=== PATIENT | female | born 1990 | race Caucasian/White ===

== ENCOUNTER 2018-01-20 17:13 | Inpatient (IN) | payer OTHER ==
[2018-01-20 17:13] VITALS: BMI 22.1
[2018-01-20 18:42] LABS: HCG,QUALITATIVE URINE POSITIVE (NEGATIVE); SQUAMOUS EPITHIAL 4 /hpf (0-5); URINE BACTERIA FEW (<OCC); URINE BILIRUBIN NEGATIVE (NEGATIVE); URINE BLOOD 1+ (NEGATIVE); URINE CLARITY Hazy (Clear); URINE COLOR Straw (YELLOW); URINE GLUCOSE (UA) NORMAL (Normal); URINE LEUKOCYTE ESTERASE 2+ Leu/uL (Negative); URINE PROTEIN NEGATIVE (NEGATIVE); URINE UROBILINOGEN NORMAL mg/dL (0.2-1.0)
[2018-01-20 19:56] LABS: BASO # 0.1 K/uL (0.0-0.2); BASO % 0.3 % (0.0-2.0); EOS # 0.1 K/uL (0.0-0.7); EOS % 0.3 % (0.0-4.0); LYMPH # 1.1 K/uL (1.0-4.3); LYMPH % 6.1 % (20.0-40.0); MEAN CELL VOLUME 84.1 fL (81.0-99.0); MEAN CORPUSCULAR HEMOGLOBIN 28.9 pg (27.0-31.0); MEAN CORPUSCULAR HGB CONC 34.4 g/dL (33.0-37.0); MEAN PLATELET VOLUME 9.3 fL (7.2-11.7); MONO # 0.8 K/uL (0.0-0.8); MONO % 4.4 % (0.0-10.0); NEUT % 88.9 % (50.0-75.0); NRBC % 0.1 % (0.0-2.0); PLATELET COUNT 246 K/uL (130-400); RBC 4.86 Mil/uL (3.80-5.20); RED CELL DISTRIBUTION WIDTH 13.7 % (11.5-14.5)
[2018-01-20] MEDS ORDERED: Sodium Chloride 0.9% 1,000 ML IV ONE ×2 (20:00→20:38)
[2018-01-20] MEDS ORDERED: Sodium Chloride 0.9% 1,000 ML ONE (20:00)
[2018-01-20 20:14] LABS: CALCIUM 9.4 mg/dl (8.6-10.4); GFR AFRICAN-AMERICAN > 60; GFR NON-AFRICAN AMERICAN > 60
[2018-01-20 20:15] LABS: ALB/GLOB RATIO 1.1 (1.0-2.1); ALBUMIN 4.3 g/dL (3.5-5.0); ALT/SGPT 19 U/L (9-52); AST/SGOT 38 U/L (14-36); BLOOD UREA NITROGEN 6 mg/dL (7-17)
[2018-01-20] MEDS ORDERED: WATER FOR INJECTION IVPB STA (20:32)
[2018-01-20] MEDS ORDERED: CEFTRIAXONE IVPB STA (20:32)
[2018-01-20 20:34] LABS: BANDS 8 % (0-2); EOSINOPHIL 1 % (0-4); LYMPHOCYTE 8 % (20-40); MONOCYTE 4 % (0-10); NEUTROPHIL 79 % (50-75); PLATELET ESTIMATE NORMAL (NORMAL); TOTAL CELLS COUNTED 100
[2018-01-20] MEDS ORDERED: cefTRIAXone IV 1 gm in Dextros 50 ML IVPB ONE ×2 (20:45→21:00)
--- NOTE | 2018-01-20 21:00 | C.PDOC ---
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 Complaint (Nursing): Abdominal Pain Past Medical History Vital Signs: Last Vital Signs Temp 97.4 F L 01/21/18 07:38 Pulse 82 01/21/18 07:38 Resp 20 01/21/18 07:38 BP 89/51 L 01/21/18 07:38 Pulse Ox 99 01/21/18 07:38 - Medical History PMH: Denies: Chronic Kidney Disease Surgical History: Appendectomy Family History: States: No Known Family Hx - Social History Hx Alcohol Use: No Hx Substance Use: No - Immunization History Hx Influenza Vaccination: No Hx Pneumococcal Vaccination: No ED Course And Treatment - Laboratory Results Result Diagrams: 01/21/18 07:31 01/20/18 19:48 O2 Sat by Pulse Oximetry: 98 Medical Decision Making Medical Decision Making: Patient being admitted to [facility] with pyelonephritis in first trimester of . Scribe Attestation: Documented by Hal Laureano acting as a scribe Ruddy Pinedo MD. MD Castilloibdivya Attestation: All medical record entries made by the Scribe were at my direction and personally dictated by me. I have reviewed the chart and agree that the record accurately reflects my personal performance of the history, physical exam, medical decision making, and the department course for this patient. I have also personally directed, reviewed, and agree with the discharge instructions and disposition. Disposition - Disposition Disposition: HOSPITALIZED Disposition Time: 08:55 Condition: FAIR - Clinical Impression Clinical Impression: Pyelonephritis
--- NOTE | 2018-01-20 21:58 | US ---
EXAM: US First Trimester, Transabdominal US , Transvaginal CLINICAL HISTORY: 27 years old, female; Pain; complicated by abdominal or pelvic pain; Generalized abdominal pain; First trimester; Gestational age or lmp: [id number]; ; Prior surgery; Surgery date: 6+ months; Surgery type: scar; Additional info: with abd pain TECHNIQUE: Real-time transabdominal and transvaginal obstetrical ultrasound of the maternal pelvis and a first trimester with image documentation. Transvaginal imaging was used for better evaluation of the fetus and adnexa. COMPARISON: No relevant prior studies available. FINDINGS: Gestation: Single live intrauterine gestation. heart rate of 140 beats per minute. Remy-rump length of 1.1 cm, correlating with gestational age of 7 weeks 1 day. Uterus/cervix: No subchorionic hemorrhage. Closed cervix. Ovaries: RIGHT ovary: Probable 1.6 x 1.7 x 1.8 cm corpus luteal cyst. LEFT ovary: Normal. No adnexal masses. Free fluid: Trace free fluid within pelvis. IMPRESSION: 1. Single live intrauterine gestation. 2. Incidental/non-acute findings are described above.
[2018-01-20] MEDS ORDERED: Morphine 4 MG/ML VIAL ONE (22:56)
[2018-01-20] MEDS: Lactated Ringer's 1,000 ML IV SCH (23:51)
[2018-01-21 00:05] VITALS: RESP 20
--- NOTE | 2018-01-21 00:10 | CP.PCM.HP ---
History of Present Illness - History of Present Illness History of Present Illness: PT is 27 at 8 weeks by LMP presents today to the ER with worsening pelvic pain for the last 2 days. She was found to be febrile with UA+ for UTI, and WBC of 18. Pt states that the pain is 10/10, does not radiate, The pain is dull and nothing improves or worsens the pain. THis is her first episode of the pain. She has not taken any medications prior to today. She has not gotten care yet. Present on Admission - Present on Admission Any Indicators Present on Admission: No History of DVT/PE: No History of Uncontrolled Diabetes: No Urinary Catheter: No Decubitus Ulcer Present: No Review of Systems - Review of Systems All systems: reviewed and no additional remarkable complaints except - Genitourinary Genitourinary: Flank Pain, Pyuria, Nocturia, Urinary Urgency - Reproductive: Female Reproductive:Female: As Per HPI, Amenorrhea Past Patient History - Tetanus Immunizations Tetanus Immunization: Unknown - Past Medical History & Family History Past Medical History?: No Past Family History: Reviewed and not pertinent - Past Social History Smoking Status: Never Smoked Chewing Tobacco Use: No Cigar Use: No Alcohol: None - CARDIAC Hx Cardiac Disorders: No - PULMONARY Hx Respiratory Disorders: No - NEUROLOGICAL Hx Neurological Disorder: No - HEENT Hx HEENT Problems: No - RENAL Hx Chronic Kidney Disease: No - ENDOCRINE/METABOLIC Hx Endocrine Disorders: No - HEMATOLOGICAL/ONCOLOGICAL Hx Blood Disorders: No - INTEGUMENTARY Hx Dermatological Problems: No - MUSCULOSKELETAL/RHEUMATOLOGICAL Hx Musculoskeletal Disorders: No - GASTROINTESTINAL Hx Gastrointestinal Disorders: No - GENITOURINARY/GYNECOLOGICAL Other/Comment: "Kidney Stones" - PSYCHIATRIC Hx Substance Use: No - SURGICAL HISTORY Hx Appendectomy: Yes - ANESTHESIA Hx Anesthesia: Yes (Epidural) Hx Anesthesia Reactions: Yes (pain) Meds Allergies/Adverse Reactions: Allergies Allergy/AdvReac Type Severity Reaction Status Date / Time No Known Allergies Allergy Verified 01/20/18 17:57 Physical Exam - Head Exam Head Exam: NORMAL INSPECTION - Eye Exam Eye Exam: Normal appearance - ENT Exam ENT Exam: Mucous Membranes Moist, Normal Exam - Neck Exam Neck exam: Positive for: Normal Inspection - Exam External exam: NORMAL EXTERNAL EXAM Results - Vital Signs Recent Vital Signs: Last Vital Signs Temp 97.4 F L 01/21/18 00:04 Pulse 89 01/21/18 00:04 Resp 20 05/08/18 00:04 BP 107/82 01/21/18 00:04 Pulse Ox 99 01/21/18 00:04 - Labs Result Diagrams: 01/20/18 19:48 01/20/18 19:48 Labs: Laboratory Results - last 24 hr 01/20/18 01/20/18 01/20/18 18:23 18:38 19:48 WBC 18.0 H RBC 4.86 Hgb 14.0 Hct 40.8 MCV 84.1 MCH 28.9 MCHC 34.4 RDW 13.7 Plt Count 246 MPV 9.3 Neut % (Auto) 88.9 H Lymph % (Auto) 6.1 L [place] % (Auto) 4.4 Eos % (Auto) 0.3 Baso % (Auto) 0.3 Neut # (Auto) 16.0 H Lymph # (Auto) 1.1 [place] # (Auto) 0.8 Eos # (Auto) 0.1 Baso # (Auto) 0.1 Neutrophils % (Manual) 79 H Band Neutrophils % 8 H Lymphocytes % (Manual) 8 L Monocytes % (Manual) 4 Eosinophils % (Manual) 1 Platelet Estimate Normal RBC Morphology Normal Sodium Potassium Chloride Carbon Dioxide Anion Gap BUN Creatinine Est GFR ( Amer) Est GFR (Non-Af Amer) Random Glucose Lactic Acid Calcium Total Bilirubin AST ALT Alkaline Phosphatase Total Protein Albumin Globulin Albumin/Globulin Ratio Beta HCG, Quant Urine Color Cancelled Straw Urine Appearance Cancelled Urine Clarity Hazy Urine pH Cancelled 7.0 Ur Specific [place] Cancelled 1.009 Urine Protein Cancelled Negative Urine Glucose (UA) Cancelled Normal Urine Ketones Cancelled Negative Urine Blood Cancelled 1+ H Urine Nitrate Cancelled Negative Urine Bilirubin Cancelled Negative Urine Urobilinogen Cancelled Normal Ur Leukocyte Esterase Cancelled 2+ H Urine WBC (Auto) 83 H Urine RBC (Auto) 8 H Ur Squamous Epith Cells 4 Urine Bacteria Few H Urine HCG, Qual Cancelled Positive 01/20/18 01/20/18 01/20/18 19:48 20:55 20:56 WBC RBC Hgb Hct MCV MCH MCHC RDW Plt Count MPV Neut % (Auto) Lymph % (Auto) [place] % (Auto) Eos % (Auto) Baso % (Auto) Neut # (Auto) Lymph # (Auto) [place] # (Auto) Eos # (Auto) Baso # (Auto) Neutrophils % (Manual) Band Neutrophils % Lymphocytes % (Manual) Monocytes % (Manual) Eosinophils % (Manual) Platelet Estimate RBC Morphology Sodium 137 Potassium 3.9 Chloride 101 Carbon Dioxide 23 Anion Gap 17 BUN 6 L Creatinine 0.5 L Est GFR ( Amer) > 60 Est GFR (Non-Af Amer) > 60 Random Glucose 73 Lactic Acid 0.8 Calcium 9.4 Total Bilirubin 1.3 AST 38 H ALT 19 Alkaline Phosphatase 136 H Total Protein 8.1 Albumin 4.3 Globulin 3.8 Albumin/Globulin Ratio 1.1 Beta HCG, Quant 41844.00 Urine Color Urine Appearance Urine Clarity Urine pH Ur Specific [place] Urine Protein Urine Glucose (UA) Urine Ketones Urine Blood Urine Nitrate Urine Bilirubin Urine Urobilinogen Ur Leukocyte Esterase Urine WBC (Auto) Urine RBC (Auto) Ur Squamous Epith Cells Urine Bacteria Urine HCG, Qual Assessment & Plan - Assessment and Plan (Free Text) Assessment: Acute pylenophritis 8 weeks gestation Plan: 1) Ceftriaxone IV. 2) Repeat CBC in the am. Currently 18 3) 8 week gestation : start PNV. refer for care Decision To Admit - Pt Status Changed To: Hospital Disposition Of: Inpatient - Admit Certification Admit to Inpatient:: After my assessment, the patient will require hospitalization for at least two midnights. This is because of the severity of symptoms shown, intensity of services needed, and/or the medical risk in this patient being treated as an outpatient. - InPatient: Physician Admission Certification:: Acute pyelonephritis - . 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
[2018-01-21] MEDS: Lactated Ringer's 1,000 ML IV SCH (07:45)
[2018-01-21 07:49] LABS: BASO # 0.1 K/uL (0.0-0.2); BASO % 0.7 % (0.0-2.0); EOS # 0.1 K/uL (0.0-0.7); EOS % 0.6 % (0.0-4.0); HEMOGLOBIN 12.2 g/dL (11.0-16.0); LYMPH # 2.1 K/uL (1.0-4.3); LYMPH % 19.1 % (20.0-40.0); MEAN CELL VOLUME 83.1 fL (81.0-99.0); MEAN CORPUSCULAR HEMOGLOBIN 29.6 pg (27.0-31.0); MEAN CORPUSCULAR HGB CONC 35.6 g/dL (33.0-37.0); MEAN PLATELET VOLUME 8.8 fL (7.2-11.7); MONO # 0.9 K/uL (0.0-0.8); MONO % 8.1 % (0.0-10.0); NEUT # 7.8 K/uL (1.8-7.0); NEUT % 71.5 % (50.0-75.0); RBC 4.11 Mil/uL (3.80-5.20); RED CELL DISTRIBUTION WIDTH 13.3 % (11.5-14.5); WHITE BLOOD COUNT 10.9 K/uL (4.8-10.8)
--- NOTE | 2018-01-21 09:57 | CP.PCM.PN ---
Subjective - Date & Time of Evaluation Date of Evaluation: 01/21/18 Time of Evaluation: 09:50 - Subjective Subjective: s: pt states pain is still present in RLQ but is decreased in intensity. she states pain radiates to right lower flank. she states she has had n/v and today is her 3rd day of it. she was unable to tolerate liquids this morning. Objective - Vital Signs/Intake and Output Vital Signs (last 24 hours): Temp Pulse Resp BP Pulse Ox 97.4 F L 82 20 89/51 L 98 01/21/18 07:38 01/21/18 07:38 01/21/18 07:38 01/21/18 07:38 01/21/18 08:55 Intake and Output: 01/21/18 01/21/18 06:59 18:59 Intake Total 1350 Balance 1350 - Medications Medications: Current Medications Acetaminophen (Tylenol 325mg Tab) 650 mg PO Q6 PRN; Protocol PRN Reason: Pain, Mild (1-3) Lactated Ringer's (Lactated Ringer's) 1,000 mls @ 125 mls/hr IV .Q8H MARKUS PRN Reason: Protocol Stop: 01/22/18 23:46 Last Admin: 01/20/18 23:51 Dose: 125 mls/hr Multivit/Folic Acid/Iron () 1 tab PO DAILY MARKUS - Labs Labs: 01/21/18 07:31 01/20/18 19:48
[2018-01-21] MEDS: Prenatal Multivit/Folic Acid/Iron Tab PO SCH (12:07)
[2018-01-21] MEDS: Lactobacillus Acidophilus 500 MU Cap PO SCH (17:48)
[2018-01-22] MEDS: Prenatal Multivit/Folic Acid/Iron Tab PO SCH (09:51)
[2018-01-22] MEDS: Lactobacillus Acidophilus 500 MU Cap PO SCH (09:53)
--- NOTE | 2018-01-22 13:55 | CP.PCM.DIS ---
Provider - Provider Date of Admission: 01/20/18 22:46 Attending physician: Angelina Lee Time Spent in preparation of Discharge (in minutes): 35 Hospital Course - Lab Results Lab Results: Micro Results 01/21/18 00:32 Urine,Catheterized Urine Culture - Final No Growth (<1,000 CFU/ML) Most Recent Lab Values WBC 10.9 K/uL (4.8-10.8) H 01/21/18 07:31 RBC 4.11 Mil/uL (3.80-5.20) 01/21/18 07:31 Hgb 12.2 g/dL (11.0-16.0) 01/21/18 07: Hct 34.2 % (34.0-47.0) 01/21/18 07: MCV 83.1 fL (81.0-99.0) 01/21/18 07: MCH 29.6 pg (27.0-31.0) 01/21/18 07: MCHC 35.6 g/dL (33.0-37.0) 01/21/18 07:31 RDW 13.3 % (11.5-14.5) 01/21/18 07:31 Plt Count 247 K/uL (130-400) 01/21/18 07:31 MPV 8.8 fL (7.2-11.7) 01/21/18 07:31 Neut % (Auto) 71.5 % (50.0-75.0) 01/21/18 07: Lymph % (Auto) 19.1 % (20.0-40.0) L 01/21/18 07:31 [place] % (Auto) 8.1 % (0.0-10.0) 01/21/18 07:31 Eos % (Auto) 0.6 % (0.0-4.0) 01/21/18 07:31 Baso % (Auto) 0.7 % (0.0-2.0) 01/21/18 07: Neut # (Auto) 7.8 K/uL (1.8-7.0) H 01/21/18 07: Lymph # (Auto) 2.1 K/uL (1.0-4.3) 01/21/18 07:31 [place] # (Auto) 0.9 K/uL (0.0-0.8) H 01/21/18 07:31 Eos # (Auto) 0.1 K/uL (0.0-0.7) 01/21/18 07:31 Baso # (Auto) 0.1 K/uL (0.0-0.2) 01/21/18 07:31 Neutrophils % (Manual) 79 % (50-75) H 01/20/18 19:48 Band Neutrophils % 8 % (0-2) H 01/20/18 19:48 Lymphocytes % (Manual) 8 % (20-40) L 01/20/18 19:48 Monocytes % (Manual) 4 % (0-10) 01/20/18 19:48 Eosinophils % (Manual) 1 % (0-4) 01/20/18 19:48 Platelet Estimate Normal (NORMAL) 01/20/18 19:48 RBC Morphology Normal 01/20/18 19:48 Sodium 137 mmol/L (132-148) 01/20/18 19:48 Potassium 3.9 mmol/L (3.6-5.2) 01/20/18 19:48 Chloride 101 mmol/L (98-107) 01/20/18 19:48 Carbon Dioxide 23 mmol/L (22-30) 01/20/18 19:48 Anion Gap 17 (10-20) 01/20/18 19:48 BUN 6 mg/dL (7-17) L 01/20/18 19:48 Creatinine 0.5 mg/dL (0.7-1.2) L 01/20/18 19:48 Est GFR ( Amer) > 60 01/20/18 19:48 Est GFR (Non-Af Amer) > 60 01/20/18 19:48 Random Glucose 73 mg/dL (65-105) 01/20/18 19:48 Lactic Acid 0.8 mmol/L (0.7-2.1) 01/20/18 20:55 Calcium 9.4 mg/dl (8.6-10.4) 01/20/18 19:48 Total Bilirubin 1.3 mg/dL (0.2-1.3) 01/20/18 19:48 AST 38 U/L (14-36) H 01/20/18 19:48 ALT 19 U/L (9-52) 01/20/18 19:48 Alkaline Phosphatase 136 U/L (38-126) H 01/20/18 19:48 Total Protein 8.1 g/dL (6.3-8.3) 01/20/18 19:48 Albumin 4.3 g/dL (3.5-5.0) 01/20/18 19:48 Globulin 3.8 gm/dL (2.2-3.9) 01/20/18 19:48 Albumin/Globulin Ratio 1.1 (1.0-2.1) 01/20/18 19:48 Beta HCG, Quant 44139.00 mIU/ML 01/20/18 20:56 Urine Color Straw (YELLOW) 01/20/18 18:38 Urine Appearance Cancelled 01/20/18 18:23 Urine Clarity Hazy (Clear) 01/20/18 18:38 Urine pH 7.0 (5.0-8.0) 01/20/18 18:38 Ur Specific [place] 1.009 (1.003-1.030) 01/20/18 18:38 Urine Protein Negative mg/dL (NEGATIVE) 01/20/18 18:38 Urine Glucose (UA) Normal mg/dL (Normal) 01/20/18 18:38 Urine Ketones Negative mg/dL (NEGATIVE) 01/20/18 18:38 Urine Blood 1+ (NEGATIVE) H 01/20/18 18:38 Urine Nitrate Negative (NEGATIVE) 01/20/18 18:38 Urine Bilirubin Negative (NEGATIVE) 01/20/18 18:38 Urine Urobilinogen Normal mg/dL (0.2-1.0) 01/20/18 18:38 Ur Leukocyte Esterase 2+ Reany/uL (Negative) H 01/20/18 18:38 Urine WBC (Auto) 83 /hpf (0-5) H 01/20/18 18:38 Urine RBC (Auto) 8 /hpf (0-3) H 01/20/18 18:38 Ur Squamous Epith Cells 4 /hpf (0-5) 01/20/18 18:38 Urine Bacteria Few (<OCC) H 01/20/18 18:38 Urine HCG, Qual Positive (NEGATIVE) 01/20/18 18:38 - Hospital Course Hospital Course: HPI ( As per admission): PT is 27 at 8 weeks by LMP presents today to the ER with worsening pelvic pain for the last 2 days. She was found to be febrile with UA+ for UTI, and WBC of 18. Pt states that the pain is 10/10, does not radiate, The pain is dull and nothing improves or worsens the pain. THis is her first episode of the pain. She has not taken any medications prior to today. She has not gotten care yet. Hospital course: Patient was admitted with the consideration of acute pyleonephritis. Patient was started on appropriate antibiotics and patient showed significant improvement. Upon discharge, patient was without symptoms and negative urine culture. Patient was discharge with appropriate instruction and medication. This is a brief summary of event. For a complete course, please refer to the medical records. Discharge Exam - Head Exam Head Exam: NORMAL INSPECTION - Eye Exam Eye Exam: EOMI, Normal appearance - ENT Exam ENT Exam: Mucous Membranes Moist - Respiratory Exam Respiratory Exam: Clear to PA & Lateral, UNREMARKABLE - Cardiovascular Exam Cardiovascular Exam: REGULAR RHYTHM, +S1, +S2 - GI/Abdominal Exam GI & Abdominal Exam: Normal Bowel Sounds, Soft - Extremities Exam Extremities exam: normal inspection - Back Exam Back exam: NORMAL INSPECTION - Psychiatric Exam Psychiatric exam: Normal Affect - Skin Skin Exam: Normal Color Discharge Plan - Discharge Medications Prescriptions: Nitrofurantoin Macrocrystals [Macrobid] 100 mg PO Q12H 7 Days #14 cap - Follow Up Plan Condition: FAIR Disposition: HOME/ ROUTINE Additional Instructions: Please discharge patient home Please take macrobid 100mg PO Q12H for 7 days. Please take 1 tablet at breakfast time and at dinner time. Please take with yogurt Please follow up with your Wire Drawing Machine Tender within 1 week of discharge and as regularly scheduled for your care Please return to the hospital if symptoms resumes such as fever, chills, back pain, contractions, vaginal bleeding or leakage of fluid Please take care
[2018-01-22 15:47] VITALS: BP 102/65; PULSE 70; TEMP 98.8; O2SAT 99
== END 2018-01-22 15:40 | disposition home or self-care (01) | DRG 886 ==
LOC: C.ER 17:13 → C.9E 22:46 → C.4M 23:03
PROVIDERS: ADMIT Obstetrics & Gynecology; ATTEND Obstetrics & Gynecology
DX: O23.01 Infections of kidney in pregnancy, first trimester (principal); O09.31 Supervision of pregnancy with insufficient antenatal care, first trimester; Z3A.08 8 weeks gestation of pregnancy; Z90.49 Acquired absence of other specified parts of digestive tract

== ENCOUNTER 2018-03-11 22:14 | Emergency (ER) | payer OTHER ==
[2018-03-11 22:14] VITALS: BMI 22.1
--- NOTE | 2018-03-11 22:32 | C.PDOC ---
History Of Present Illness Patient presents to the ER with a complaint of vaginal pain and whitish vaginal discharge. Patient is 15 weeks , , states she had intercourse 2 days ago and is now having discomfort. Denies fever or chills. Time Seen by Provider: 03/11/18 22:32 Chief Complaint (Nursing): Female Genitourinary History Per: Patient History/Exam Limitations: no limitations Onset/Duration Of Symptoms: Days Current Symptoms Are (Timing): Still Present Severity: Moderate Pain Scale Rating Of: 4 Quality Of Discomfort: Unable To Describe Associated Symptoms: Other (Vaginal pain, Vaginal discharge). denies: Fever, Chills Alleviating Factors: None Recent travel outside of the [place]: No Abnormal Vaginal Bleeding: No : 3 Para: 1 Past Medical History Reviewed: Historical Data, Nursing Documentation, Vital Signs Vital Signs: Last Vital Signs Temp 98 F 03/11/18 22:23 Pulse 78 03/11/18 22:23 Resp 20 03/11/18 22:23 BP 114/78 03/11/18 22:23 Pulse Ox 98 03/11/18 22:55 Surgical History: Appendectomy Family History: States: No Known Family Hx - Social History Hx Alcohol Use: No Hx Substance Use: No - Immunization History Hx Influenza Vaccination: No Hx Pneumococcal Vaccination: No Review Of Systems Constitutional: Negative for: Fever, Chills Respiratory: Negative for: Cough, Shortness of Breath Gastrointestinal: Negative for: Nausea, Vomiting, Abdominal Pain Genitourinary: Positive for: Vaginal Discharge, Other (Vaginal Pain) Physical Exam - Physical Exam Appears: Non-toxic Skin: Warm, Dry Head: Normacephalic Oral Mucosa: Moist Chest: Symmetrical, No Tenderness Cardiovascular: Rhythm Regular Respiratory: No Rales, No Rhonchi, No Wheezing Gastrointestinal/Abdominal: Soft, No Tenderness, Other (Gravid) Pelvic: Vaginal Discharge (whitish , cottage cheese like discharge) Neurological/Psych: Oriented x3 ED Course And Treatment O2 Sat by Pulse Oximetry: 98 (Room air) Pulse Ox Interpretation: Normal Progress Note: Urinalysis ordered. 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 I have reviewed the chart and agree that the record accurately reflects my personal performance of the history, physical exam, medical decision making, and the department course for this patient. I have also personally directed, reviewed, and agree with the discharge instructions and disposition.
[2018-03-11 23:03] LABS: SQUAMOUS EPITHIAL 3 /hpf (0-5); URINE BILIRUBIN NEGATIVE (NEGATIVE); URINE BLOOD NEGATIVE (NEGATIVE); URINE CLARITY Clear (Clear); URINE COLOR Straw (YELLOW); URINE GLUCOSE (UA) NORMAL (Normal); URINE LEUKOCYTE ESTERASE 3+ Leu/uL (Negative); URINE PROTEIN NEGATIVE (NEGATIVE); URINE UROBILINOGEN NORMAL mg/dL (0.2-1.0)
[2018-03-11 23:50] VITALS: BP 108/70; PULSE 81; RESP 18; TEMP 98.4; O2SAT 97
== END 2018-03-11 23:54 | disposition home or self-care (01) ==
LOC: C.ER 22:14
DX: O23.42 Unspecified infection of urinary tract in pregnancy, second trimester (principal); O98.812 Other maternal infectious and parasitic diseases complicating pregnancy, second trimester; B37.3 Candidiasis of vulva and vagina; Z3A.15 15 weeks gestation of pregnancy

== ENCOUNTER 2018-03-28 09:05 | Emergency (ER) | payer SELFPAY ==
[2018-03-28 09:05] VITALS: BMI 22.1
[2018-03-28 10:54] LABS: BASO # 0.1 K/uL (0.0-0.2); BASO % 0.5 % (0.0-2.0); EOS # 0.2 K/uL (0.0-0.7); EOS % 1.5 % (0.0-4.0); HEMOGLOBIN 11.9 g/dL (11.0-16.0); LYMPH % 17.1 % (20.0-40.0); MEAN CELL VOLUME 83.3 fL (81.0-99.0); MEAN CORPUSCULAR HEMOGLOBIN 29.2 pg (27.0-31.0); MEAN PLATELET VOLUME 8.9 fL (7.2-11.7); MONO # 0.8 K/uL (0.0-0.8); MONO % 6.5 % (0.0-10.0); NEUT # 8.8 K/uL (1.8-7.0); NEUT % 74.4 % (50.0-75.0); RBC 4.09 Mil/uL (3.80-5.20); RED CELL DISTRIBUTION WIDTH 13.8 % (11.5-14.5); WHITE BLOOD COUNT 11.8 K/uL (4.8-10.8)
[2018-03-28 11:03] LABS: ALB/GLOB RATIO 1.2 (1.0-2.1); ALBUMIN 3.7 g/dL (3.5-5.0); ALT/SGPT 24 U/L (9-52); AST/SGOT 12 U/L (14-36); BLOOD UREA NITROGEN 5 mg/dL (7-17); CALCIUM 8.9 mg/dl (8.6-10.4); GFR AFRICAN-AMERICAN > 60; GFR NON-AFRICAN AMERICAN > 60
[2018-03-28 11:04] LABS: SQUAMOUS EPITHIAL 4 /hpf (0-5); URINE BACTERIA OCC (<OCC); URINE BILIRUBIN NEGATIVE (NEGATIVE); URINE BLOOD NEGATIVE (NEGATIVE); URINE CLARITY Hazy (Clear); URINE COLOR Yellow (YELLOW); URINE GLUCOSE (UA) NORMAL (Normal); URINE LEUKOCYTE ESTERASE 3+ Leu/uL (Negative); URINE PROTEIN NEGATIVE (NEGATIVE); URINE UROBILINOGEN NORMAL mg/dL (0.2-1.0)
[2018-03-28 11:10] LABS: HCG,QUALITATIVE URINE POSITIVE (NEGATIVE)
--- NOTE | 2018-03-28 12:12 | C.PDOC ---
History Of Present Illness 27 y/o female currently approx 15 weeks presents to ED with c/o vaginal itching, vaginal pain and vaginal discharge for 1 week. Patient reports left side abdominal pain and dysuria, states she was admitted in 01/2018 for Pyelonephritis and completed antibiotics. pt seen in ed again 2 weeks ago, txed with macrobid and monistat. Patient was seen by her OBGYN 4 days ago, told to continue monistat, and states symptoms have not improved. Patient denies fever, nausea, vomiting, vaginal bleeding or any other complaints at this time. Time Seen by Provider: 03/28/18 10:40 Chief Complaint (Nursing): Female Genitourinary History Per: Patient History/Exam Limitations: no limitations Onset/Duration Of Symptoms: Days Current Symptoms Are (Timing): Still Present Quality Of Discomfort: "Pain" Associated Symptoms: Urinary Symptoms Past Medical History Reviewed: Historical Data, Nursing Documentation, Vital Signs Vital Signs: Last Vital Signs Temp 98.7 F 03/28/18 16:39 Pulse 108 H 03/28/18 16:39 Resp 20 03/28/18 16:39 BP 115/77 03/28/18 16:39 Pulse Ox 100 03/28/18 18:51 - Medical History PMH: No Chronic Diseases Surgical History: Appendectomy Family History: States: No Known Family Hx - Social History Hx Alcohol Use: No Hx Substance Use: No - Immunization History Hx Influenza Vaccination: No Hx Pneumococcal Vaccination: No Review Of Systems Constitutional: Negative for: Fever, Chills Gastrointestinal: Positive for: Abdominal Pain. Negative for: Nausea, Vomiting Genitourinary: Positive for: Dysuria, Vaginal Discharge Musculoskeletal: Negative for: Back Pain Skin: Negative for: Rash Physical Exam - Physical Exam Appears: Non-toxic, No Acute Distress Skin: Warm, Dry Head: Atraumatic, Normacephalic Eye(s): bilateral: Normal Inspection Oral Mucosa: Moist Neck: Normal ROM, Supple Cardiovascular: Rhythm Regular, No Murmur Respiratory: Normal Breath Sounds, No Rales, No Rhonchi, No Wheezing Gastrointestinal/Abdominal: Soft, Tenderness (LLQ), No Distention, No Guarding, No Rebound Back: CVA Tenderness (left side mild), No Paraspinal Tenderness Pelvic: Vaginal Discharge (thick white clumpy discharge noted on external genitalia. ), Other (erythema on introitus with questionable lesions; pt unable to tolerate speculum exam. 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 Huerta, STD panel ordered Call Dr. Huerta after US for bedside evaluation [id number]erta, recommends diflucan 150 mg po x 10 d, no antibiotics for urine, to f/u culture Disposition Counseled Patient/Family Regarding: Studies Performed, Diagnosis, Need For Followup, Rx Given - Disposition Disposition: HOME/ ROUTINE Disposition Time: 16:25 Condition: GOOD Additional Instructions: Please take Dflucan once a day for 10 days. Use Monistat cream on external vaginal area. Follow up with your canoe inspector in next 2-3 days. Please drink increased fluids- 6-8 glasses of water per day. Return to ER for any Please take antibiotics as prescribed. Prescriptions: Fluconazole [Diflucan] 150 mg PO DAILY #10 tab Miconazole/Cleanser 17 On Wipe [Monistat 3 Combo Pack] 1 each VG DAILY #1 kit Instructions: Vaginal Yeast Infection (DC), - The Fourth Month Forms: [facility] (Setswana), General Discharge Instructions - Clinical Impression Clinical Impression: Vulvovaginal candidiasis, and not yet delivered in second trimester - PA / LOAN APPROVER / Resident Statement MD/DO has reviewed & agrees with the documentation as recorded. - Scribe Statement The provider has reviewed the documentation as recorded by the Tyler Oliveira All medical record entries made by the Tyler were at my direction and personally dictated by me. I have reviewed the chart and agree that the record accurately reflects my personal performance of the history, physical exam, medical decision making, and the department course for this patient. I have also personally directed, reviewed, and agree with the discharge instructions and disposition.
--- NOTE | 2018-03-28 13:30 | US ---
Date of service: 03/28/2018 PROCEDURE: OB Pelvic Ultrasound HISTORY: Left-sided abdominal pain COMPARISON: None available. FINDINGS: UTERUS: Single live intrauterine fetus in variable presentation. BPD: 3.58 cm corresponding to 17 weeks and 0 days of gestational age. HC: 13.6 cm corresponding to 17 weeks and 0 day of gestational age. AC: 11.25 cm corresponding to 17 weeks and 0 days of gestational age. FL: 2.2 cm corresponding to 16 weeks and 4 days of gestational age. age (Ultrasound estimated): 16 weeks and 6 days Date of delivery (Ultrasound estimated) : 09/06/2018 Heart rate: 140 bpm. Desire-gestational hemorrhage: None. Placenta is anterior. CERVIX: Long and closed. No cervical abnormality seen. OTHER FINDINGS: None. IMPRESSION: Single live intrauterine fetus with mean gestational age of 16 weeks and 6 days. The estimated date of delivery by ultrasound is 09/06/2018. The ultrasound dates lag the clinical dates by approximately 3 weeks. Clinical follow-up is advised. Please note this is a limited OB ultrasound performed on an emergent basis. Follow-up dedicated anatomic survey is recommended.
[2018-03-28 14:50] VITALS: RESP 20
[2018-03-28 14:56] LABS: HEPATITIS B SURFACE AG Negative (NEGATIVE)
[2018-03-28 15:01] LABS: HEPATITIS A IGM NEGATIVE (NEGATIVE); HEPATITIS B CORE AB NEGATIVE (NEGATIVE)
[2018-03-28 15:13] LABS: HEPATITIS C ANTIBODY NEGATIVE (NEGATIVE)
[2018-03-28 16:40] VITALS: BP 115/77; PULSE 108; TEMP 98.7
[2018-03-28 18:49] VITALS: O2SAT 100
--- NOTE | 2018-03-28 20:55 | CP.PCM.CON ---
History of Present Illness - History of Present Illness History of Present Illness: 27 y/o @16 weeks 5 days (Last US March 25) [place]ian female presenting to ED at 03/28/18 with burning dysuriea, urinary freq and urgency and pruritus for the past month. Pt was seen in the ED one month ago and was diagnosed with UTI and yeast infection and treated with nitrofurantoin and monostat. Pt states symptosm did not resolve and continued over the last month. Pt denies CP, SOB, dizziness, and hematuri Review of Systems - Review of Systems All systems: reviewed and no additional remarkable complaints except (c/o of some fever and low abdominal pain) - Genitourinary Genitourinary: Difficulty Urinating, Dysuria - Reproductive: Female Reproductive:Female: Vaginal Discharge (Copious amounts of "cottage cheese" discharge ad c/w Seble infection) - Menstruation Menstruation: Amenorrhea (Presently 15 weeks viable IUP and on PNC) Past Patient History - Infectious Disease Hx of Infectious Diseases: None - Tetanus Immunizations Tetanus Immunization: Unknown - Past Medical History & Family History Past Medical History?: No Past Family History: Reviewed and not pertinent - Past Social History Smoking Status: Never Smoked Chewing Tobacco Use: No Cigar Use: No Alcohol: None Home Situation {Lives}: With Family Domestic Violence: Negative - CARDIAC Hx Cardiac Disorders: No - PULMONARY Hx Respiratory Disorders: No - NEUROLOGICAL Hx Neurological Disorder: No - HEENT Hx HEENT Problems: No - RENAL Hx Chronic Kidney Disease: No - ENDOCRINE/METABOLIC Hx Endocrine Disorders: No - HEMATOLOGICAL/ONCOLOGICAL Hx Blood Disorders: No - INTEGUMENTARY Hx Dermatological Problems: No - MUSCULOSKELETAL/RHEUMATOLOGICAL Hx Musculoskeletal Disorders: No - GASTROINTESTINAL Hx Gastrointestinal Disorders: No - GENITOURINARY/GYNECOLOGICAL Other/Comment: "Kidney Stones" - PSYCHIATRIC Hx Substance Use: No - SURGICAL HISTORY Hx Appendectomy: Yes - ANESTHESIA Hx Anesthesia: Yes (Epidural) Hx Anesthesia Reactions: No (pain) Meds Home Medications: Home Medication List Medication Instructions Recorded Confirmed Type Fluconazole [Diflucan] 150 mg PO DAILY #10 tab 03/28/18 Rx Miconazole/Cleanser 17 On Wipe 1 each VG DAILY #1 kit 03/28/18 Rx [Monistat 3 Combo Pack] Allergies/Adverse Reactions: Allergies Allergy/AdvReac Type Severity Reaction Status Date / Time No Known Allergies Allergy Verified 03/28/18 09:18 Physical Exam - Head Exam Head Exam: NORMAL INSPECTION - Cardiovascular Exam Cardiovascular Exam: REGULAR RHYTHM - Rectal Exam Rectal Exam: NORMAL INSPECTION - Exam Exam: NORMAL INSPECTION External exam: NORMAL EXTERNAL EXAM Speculum exam: Vaginal Discharge (Copious amount thick vaginal discharge) - Extremities Exam Extremities exam: Positive for: normal inspection Results - Vital Signs Recent Vital Signs: Last Vital Signs Temp 98.7 F 03/28/18 16:39 Pulse 108 H 03/28/18 16:39 Resp 20 03/28/18 16:39 BP 115/77 03/28/18 16:39 Pulse Ox 100 03/28/18 18:52 - Labs Result Diagrams: 03/28/18 10:45 03/28/18 10:45 Labs: Laboratory Results - last 24 hr 03/28/18 03/28/18 03/28/18 10:45 10:45 10:45 WBC 11.8 H RBC 4.09 Hgb 11.9 Hct 34.1 MCV 83.3 MCH 29.2 MCHC 35.0 RDW 13.8 Plt Count 211 MPV 8.9 Neut % (Auto) 74.4 Lymph % (Auto) 17.1 L Rhea % (Auto) 6.5 Eos % (Auto) 1.5 Baso % (Auto) 0.5 Neut # (Auto) 8.8 H Lymph # (Auto) 2.0 Rhea # (Auto) 0.8 Eos # (Auto) 0.2 Baso # (Auto) 0.1 Sodium 137 Potassium 4.2 Chloride 103 Carbon Dioxide 23 Anion Gap 16 BUN 5 L Creatinine 0.4 L Est GFR ( Amer) > 60 Est GFR (Non-Af Amer) > 60 Random Glucose 92 Calcium 8.9 Total Bilirubin 0.6 AST 12 L D ALT 24 Alkaline Phosphatase 94 Total Protein 6.6 Albumin 3.7 Globulin 2.9 Albumin/Globulin Ratio 1.2 Urine Color Yellow Urine Clarity Hazy Urine pH 5.0 Ur Specific [place] 1.017 Urine Protein Negative Urine Glucose (UA) Normal Urine Ketones Negative Urine Blood Negative Urine Nitrate Negative Urine Bilirubin Negative Urine Urobilinogen Normal Ur Leukocyte Esterase 3+ H Urine WBC (Auto) 27 H Urine RBC (Auto) 14 H Ur Squamous Epith Cells 4 Urine Bacteria Occ H Urine HCG, Qual Positive RPR Hepatitis A IgM Ab Hep Bs Antigen Hep B Core IgM Ab Hepatitis C Antibody 03/28/18 03/28/18 13:56 13:56 WBC RBC Hgb Hct MCV MCH MCHC RDW Plt Count MPV Neut % (Auto) Lymph % (Auto) Rhea % (Auto) Eos % (Auto) Baso % (Auto) Neut # (Auto) Lymph # (Auto) Rhea # (Auto) Eos # (Auto) Baso # (Auto) Sodium Potassium Chloride Carbon Dioxide Anion Gap BUN Creatinine Est GFR ( Amer) Est GFR (Non-Af Amer) Random Glucose Calcium Total Bilirubin AST ALT Alkaline Phosphatase Total Protein Albumin Globulin Albumin/Globulin Ratio Urine Color Urine Clarity Urine pH Ur Specific [place] Urine Protein Urine Glucose (UA) Urine Ketones Urine Blood Urine Nitrate Urine Bilirubin Urine Urobilinogen Ur Leukocyte Esterase Urine WBC (Auto) Urine RBC (Auto) Ur Squamous Epith Cells Urine Bacteria Urine HCG, Qual RPR Nonreactive Hepatitis A IgM Ab Negative Hep Bs Antigen Negative Hep B Core IgM Ab Negative Hepatitis C Antibody Negative - Imaging and Cardiology US - abdomen Status: Image reviewed by me Assessment & Plan - Assessment and Plan (Free Text) Assessment: Assessment and Plan: 1. IUP at 15 weeks with care scheduled and viable per US 2. Vaginal candidiasis with severe vulvar and perineal irritation, inflammation and swelling a. Moderate cloudy discharge on PE / culture obtained and sent b. Recommend fluconazole once a day 125 mg for 10 days and Monistat cream ti vulva for inflammation c. STD's were drawn 3. Recurrent UTI but Negative culture in the past a. Minimal CVA tenderness with Mild dysuria, most likely Cystitis / UA shows mild leukocytosis and probably from severe Candidiasis b. Dehydration and admits to drinking very little water c. Completed second course of Microbid few days ago d. Recommend to wait for urine culture results before Tx with antibiotics again e. Advised to increase po water intake. f. FUp with Care on scheduled appointment Plan: See text included wit Assessment - Date & Time Date: 03/28/18 Time: 17:30
== END 2018-03-28 16:40 | disposition home or self-care (01) ==
LOC: C.ER 09:05
DX: O98.812 Other maternal infectious and parasitic diseases complicating pregnancy, second trimester (principal); B37.3 Candidiasis of vulva and vagina; O23.42 Unspecified infection of urinary tract in pregnancy, second trimester; Z3A.15 15 weeks gestation of pregnancy

== ENCOUNTER 2018-05-17 22:50 | Emergency (ER) | payer OTHER ==
[2018-05-17 23:19] VITALS: BMI 26.8
[2018-05-17 23:32] LABS: SQUAMOUS EPITHIAL 2 /hpf (0-5); URINE BACTERIA OCC (<OCC); URINE BILIRUBIN NEGATIVE (NEGATIVE); URINE BLOOD NEGATIVE (NEGATIVE); URINE CLARITY Clear (Clear); URINE COLOR Straw (YELLOW); URINE GLUCOSE (UA) 3+ mg/dL (Normal); URINE PROTEIN NEGATIVE (NEGATIVE); URINE UROBILINOGEN NORMAL mg/dL (0.2-1.0)
[2018-05-17 23:33] LABS: URINE LEUKOCYTE ESTERASE 1+ Leu/uL (Negative)
--- NOTE | 2018-05-18 00:47 | OBHP ---
Datetime: 05/17/2018 23:33 IP Adm Impression: , intrauterine ; Intact Membranes IP Admit Plan: Observation/Evaluation; Discharge home Admit Comment, IP Provider: 27 yo female with an IUP at 24.3 weeks C/O of painful urination and vaginal itching for a couple of days Drinks little water UA with few WBC's + Cystitis with possible UTI and Seble vaginalis FHT's reassuring for GA and no contractions recorded or palpated Admits to adequate FM, No LOF or vaginal bleeding Rx for Keflex 500 mg po BID x 7 days and Diflucan 150 mg po today and in 7 days Will increase po water intake F/Up in the clinic in 5-7 days Discharge home in Stable and Satisfactory condition Pelvic Type - PN: Adequate Extremities - PN: Normal Abdomen - PN: Normal Back - PN: Normal Breast - PN: Not Done Lungs - PN: Normal Heart - PN: Normal Thyroid - PN: Normal Neurologic - PN: Normal HEENT - PN: Normal General - PN: Normal FHR - Baseline A Provider: 140 Membranes, Provider: Intact Gestation - Est Wks by US: 24.3 EGA AdmitDate IP: 24.2 Vital Signs Provider: Reviewed; Within Normal Limits IP Chief Complaint: Signs/symptoms UTI; Other NICHD Decel Fetus A IP Provider: None Dilatation, Provider: 0 Effacement, Provider: 0 Station, Provider: floating Genitourinary Exam: Normal DTRs - PN: Normal
[2018-05-18 10:50] VITALS: BP 102/69; PULSE 75; RESP 20; TEMP 97
== END 2018-05-18 01:00 | disposition home or self-care (01) ==
LOC: C.EROB 22:50
DX: O23.12 Infections of bladder in pregnancy, second trimester (principal); O98.812 Other maternal infectious and parasitic diseases complicating pregnancy, second trimester; B37.3 Candidiasis of vulva and vagina; Z3A.24 24 weeks gestation of pregnancy

== ENCOUNTER 2018-06-19 13:10 | Emergency (ER) | payer OTHER ==
[2018-06-19 13:11] VITALS: BMI 26.8
[2018-06-19 13:27] VITALS: BP 145/89; PULSE 121; RESP 19; TEMP 98.5; O2SAT 98
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
--- NOTE | 2018-06-19 18:51 | US ---
Indication: No movement Comparison: OB , limited ultrasound performed 03/28/18 Technique: Real-time ultrasound was performed through the pelvis. Findings: There is a single living fetus in cephalicpresentation. Amniotic fluid volume is within normal limits. Anterior placenta. The placenta is not previa. There are no adnexal masses or cysts evident. Cervix length measures approximately 3.1 cm. The study was performed for the emergent evaluation, and the whole anatomic survey of the fetus was not performed. This should be performed on an outpatient elective basis as clinically warranted. Measurements and calculations: Fetus has a composite sonographic age of 29 weeks 0 days. This calculation is based on the biparietal diameter, head circumference, abdominal circumference, and femur length. Estimated heart rate 126.3 beats per min. Estimated weight 1307 g. Biophysical profile: movements 2/2 breathing 2/2 tone 2/2 Amniotic fluid 2/2 Total score impression: 04/23 Impression: Single living fetus with a composite sonographic age of 29 weeks 0 days. Estimated heart rate 126.3 beats per min. Biophysical profile of 8 out of 8.
== END 2018-06-19 19:20 | disposition home or self-care (01) ==
LOC: C.ER 13:10
DX: O26.893 Other specified pregnancy related conditions, third trimester (principal); T21.22XA Burn of second degree of abdominal wall, initial encounter; X12.XXXA Contact with other hot fluids, initial encounter; Z3A.28 28 weeks gestation of pregnancy

== ENCOUNTER 2018-07-07 14:38 | Emergency (ER) | payer MEDICAID, OTHER ==
[2018-07-07 14:39] VITALS: BMI 26.8
[2018-07-07 16:37] LABS: SQUAMOUS EPITHIAL 9 /hpf (0-5); URINE BACTERIA OCC (<OCC); URINE BILIRUBIN NEGATIVE (NEGATIVE); URINE BLOOD NEGATIVE (NEGATIVE); URINE CLARITY Hazy (Clear); URINE COLOR Yellow (YELLOW); URINE GLUCOSE (UA) 3+ mg/dL (Normal); URINE LEUKOCYTE ESTERASE 3+ Leu/uL (Negative); URINE PROTEIN NEGATIVE (NEGATIVE); URINE UROBILINOGEN NORMAL mg/dL (0.2-1.0)
--- NOTE | 2018-07-07 19:05 | OBDCSUM ---
Datetime: 07/07/2018 17:24 Discharged to, Provider: Home Follow up at, Provider: clinic Disch Instr Activity: Normal activity Disch Instr Diet: Regular Discharge Instructions, Provider: Routine instructions given Discharge Time: 07/07/2018 17:24 Follow up in weeks, Provider: As scheduled Disch Referrals: None Contraception discussed, Prov: Yes Disch Activity Restrictions: No sexual activity; Nothing in vagina - [place], tampons, douche Discharge Comment, Provider: Please avoid sugary foods and drinks Please continue to heavy hydratioN Please take 1 tablet of diflucan 150mg PO 07/09/18 and 07/13/18 Please apply terazol 7 intravaginally once at bedtime and apply externally three times a day for 7 days Please avoid bath Discharge Diagnosis Prov Other: Recurrent Yeast infection of vaginal and vulva Reassuring FHT's Not in labor Contraception after Delivery: Undecided
--- NOTE | 2018-07-07 19:06 | OBHP ---
Datetime: 07/07/2018 15:48 IP Adm Impression: , intrauterine IP Admit Plan: Observation/Evaluation Admit Comment, IP Provider: CC: Vaginal swelling, discharge and itchiness Patient is a 27 year old AT 31.4 weeks with VANDANA (09/04/18) by US and LMP (11/13/17), who pr esents to the [facility] with complaint of vaginal swelling, burning with urination, white thick discharge and itchiness that started 2 days ago. Patient reports that she was treated for yeast infection 2 mon ths ago. Patient denies any vaginal bleeding or other abnormal vaginal discharge. Patient reports las t sexual intercourse 1 month ago. Patient admits to movement and denies leakage/ contractions care: [facility], Dr. Sanford G1: Female , 10/2016, due to polyhydramnios and decrease heart rate, 6lbs G2: Yeast infection treated 2 months ago and treated for UTI Esl Teacher: Menarche: 13 Triad: 12/regular Denies Hx of STDs, ovarian cyst and fibriods PMHx: Denies PSHx: Appendectomy and FHx: Gestational DM Medications: Allergies: NKDA Social Hx: lives with family, denies hx of tobacco, illicit drugs and ETOH VS: See above; WNL PE: See above A/P: Patient is a 27 year old AT 31.4 weeks with VANDANA (09/04/18) by US and LMP (11/13/17), w ho presents to the [facility] with complaint of vaginal swelling, burning with urination, white thick disch arge and itchiness that started 2 days ago. + Clinical Recurrent vaginal Candidiasis 1. [facility] observation / NST Reactive 2. Difllucan 125 mg po given 3. Advised to stop hot baths and switch to showers with lukewarm water, Cotton Underware and to de crease sugar intake 4 F/u UA Plan of management disscuseed with Dr. Bradley Wiseman. DO, PGY2 Pelvic Type - PN: Adequate Extremities - PN: Normal Abdomen - PN: Normal Back - PN: Normal Breast - PN: Not Done Lungs - PN: Normal Heart - PN: Normal Thyroid - PN: Normal Neurologic - PN: Normal HEENT - PN: Normal General - PN: Normal FHR - Baseline A Provider: 140 Membranes, Provider: Intact Contraction Comments Provider: None Comments, ACOG Physical Exam: Gen: NAD Cardio: RRR, normal S1, S2 Pulm: CTA Abdo: Soft, gravid, malorie helght: 32cm Ext: No edema, no cyanosis and no clubbing SVE + Cottage cheese vaginal discharge c/w Seble infection EGA AdmitDate IP: 31.4 Vital Signs Provider: Reviewed; Within Normal Limits IP Chief Complaint: Other NICHD Variability Prov Fetus A: Moderate 6-25bpm NICHD Accel Fetus A IP Provider: 10X10 FHR Category Provider Fetus A: Category I NICHD Decel Fetus A IP Provider: None Dilatation, Provider: 0 Effacement, Provider: 0 Station, Provider: Floating Genitourinary Exam: Normal DTRs - PN: Normal
[2018-07-07 21:28] VITALS: BP 108/67; PULSE 100; RESP 20; TEMP 97; O2SAT 100
== END 2018-07-07 17:27 | disposition home or self-care (01) ==
LOC: C.ER 14:38 → C.EROB 14:38
DX: O98.813 Other maternal infectious and parasitic diseases complicating pregnancy, third trimester (principal); B37.3 Candidiasis of vulva and vagina; Z3A.31 31 weeks gestation of pregnancy

== ENCOUNTER 2018-08-06 22:00 | Inpatient (IN) | payer MEDICAID, OTHER ==
[2018-08-06] MEDS ORDERED: Penicillin G 5 Million Unit Vial IVPB ONE ×2 (22:26→23:23)
[2018-08-06 22:27] VITALS: BMI 25.8
[2018-08-06] MEDS ORDERED: Lactated Ringer's 1,000 ML IV SCH (22:30)
--- NOTE | 2018-08-06 22:36 | OBADHP ---
Datetime: 08/06/2018 22:30 Admit Comment, IP Provider: at 36.6weeks came with c/o srom started at 8 pm and some occ pain . pt req . last c/s for fever obhx 1 x c/s pmh de med pnv all nkda psh c/s soch de sse +pooling+nitraz bss cep a/p at 35.6weeks / admit to l_d npo/ivf labs consent cont brayden and efm type and crtoss anticipate va Pelvic Type - PN: Adequate Extremities - PN: Normal Abdomen - PN: Normal Back - PN: Normal Breast - PN: Normal Lungs - PN: Normal Heart - PN: Normal Thyroid - PN: Normal Neurologic - PN: Normal HEENT - PN: Normal General - PN: Normal FHR - Baseline A Provider: 140 Contraction Comments Provider: irrg IP Hx Assessment: The History has been Reviewed and is Current Vital Signs Provider: Reviewed; Within Normal Limits IP Chief Complaint: Suspected ruptured membranes NICHD Variability Prov Fetus A: Moderate 6-25bpm NICHD Accel Fetus A IP Provider: 15X15 FHR Category Provider Fetus A: Category I NICHD Decel Fetus A IP Provider: None Dilatation, Provider: 2 Effacement, Provider: 50 Station, Provider: -3 Genitourinary Exam: Normal DTRs - PN: Normal EGA AdmitDate IP: 35.6 IP Adm Impression: , intrauterine IP Admit Plan: Admit to unit; Initiate protocol Datetime: 07/07/2018 15:48 Comments, ACOG Physical Exam: Datetime: 06/19/2018 16:54 Gestation - Est Wks by US: 29.0 Datetime: 05/17/2018 23:33 Membranes, Provider: Intact
[2018-08-06 23:10] LABS: BASO # 0.1 K/uL (0.0-0.2); BASO % 0.5 % (0.0-2.0); EOS % 0.4 % (0.0-4.0); LYMPH # 2.2 K/uL (1.0-4.3); LYMPH % 18.8 % (20.0-40.0); MEAN CORPUSCULAR HEMOGLOBIN 21.8 pg (27.0-31.0); MEAN CORPUSCULAR HGB CONC 32.3 g/dL (33.0-37.0); MEAN PLATELET VOLUME 9.2 fL (7.2-11.7); MONO # 0.8 K/uL (0.0-0.8); MONO % 7.2 % (0.0-10.0); NEUT # 8.4 K/uL (1.8-7.0); NEUT % 73.1 % (50.0-75.0); NRBC % 0.3 % (0.0-2.0); RBC 4.2 Mil/uL (3.80-5.20); RED CELL DISTRIBUTION WIDTH 17.5 % (11.5-14.5); WHITE BLOOD COUNT 11.4 K/uL (4.8-10.8)
[2018-08-06 23:23] LABS: HEMOGLOBIN 9.1 g/dL (11.0-16.0)
[2018-08-06 23:24] LABS: MEAN CELL VOLUME 67.3 fL (81.0-99.0)
[2018-08-06 23:31] LABS: BARBITURATES, UR NEGATIVE (NEGATIVE); BENZODIAZEPINES, UR NEGATIVE (NEGATIVE); OPIATES, UR NEGATIVE (NEGATIVE); PHENCYCLIDINE, UR NEGATIVE (NEGATIVE)
[2018-08-07] MEDS ORDERED: Nalbuphine HCL 10 mg/ml Ampule IVP PRN (04:18)
[2018-08-07] MEDS ORDERED: Nalbuphine HCL 10 mg/ml Ampule ONE (04:28)
[2018-08-07] MEDS ORDERED: Lidocaine 2% MPF (5 ml) Inj ONE ×5 (07:34→10:57)
[2018-08-07] MEDS ORDERED: Bupivacaine HCl 0.5% PF (30 ml) Inj ONE (07:36)
[2018-08-07] MEDS ORDERED: Lidocaine Hydrochloride 5 ML INJ ONE (07:37)
[2018-08-07] MEDS ORDERED: Lidocaine 2% MPF (5 ml) Inj INFIL ONE (08:20)
[2018-08-07] MEDS ORDERED: Oxytocin 10 Units/ml Inj ONE (08:32)
[2018-08-07] MEDS ORDERED: Oxytocin 30 UNIT 30 UNITS/500 ML BAG IV ONE (08:39)
[2018-08-07] MEDS ORDERED: Oxycodone/Acetaminophen 5/325 mg Tab ONE (09:48)
[2018-08-07] MEDS ORDERED: Oxycodone/Acetaminophen 5/325 mg Tab PO PRN ×2 (09:51)
[2018-08-07] MEDS ORDERED: Acetaminophen-Codeine 300/30 mg Tab PO PRN (09:51)
[2018-08-07] MEDS ORDERED: Benzocaine/Menthol 20%-0.5% Topical Spray (60 ml) TOP PRN (09:51)
--- NOTE | 2018-08-07 10:15 | OBDS ---
DELIVERY PERSONNEL Delivery Doctor: Jade Huerta DO Scrub Nurse: Leslye Moses Spinning Operator: Jason Ramsey RN Anesthesiologist: Dr. Machado MATERNAL INFORMATION Delivery Anesthesia: Local; Epidural Estimated Blood Loss (ml): 300 Placenta Cultured: No Maternal Complications: Premature Rupture of Membranes; Other Other Maternal Complications: PTL. IUP 36.0 RN Comments: TOLAC Provider Comments: of a viable Male from LENY position after easily reducing a loose CNC x 1 and over an intact perineum. Apgars 9_9 and BW 5lbs, 6oz. Placenta, cord blood and cord pH sent to Lab Mild uterine atony noted and ressolved with increasing Pitocin infusion IV and one dose of Metherg ine IM. EBL 300 mls Lacerations repaired with the aid of Local Anesthesia and patient tolerated the procedure well. LABOR SUMMARY EDC: 09/04/2018 00:00 No. Babies in Womb: 1 Attempted: Yes Labor Anesthesia: Epidural LABOR INFORMATION Reason for Induction: Not Applicable Onset of Labor: 08/07/2018 00:00 Complete Dilatation: 08/07/2018 07:48 Group B Beta Strep: Done, Result Unknown Antibiotics # of Doses: 2 Antibiotics Time of Last Dose: 3:30am Steroids Given: None Reason Steroids Not Administered: Not Applicable MEMBRANES Membranes Rupture Method: Spontaneous Rupture of Membranes: 08/06/2018 21:15 Length of Rupture (hrs): 10.82 Amniotic Fluid Color: Clear Amniotic Fluid Amount: Small Amniotic Fluid Odor: Normal STAGES OF LABOR Stage 1 hrs: 7 Stage 1 min: 48 Stage 2 hrs: 0 Stage 2 min: 16 Stage 3 hrs: 0 Stage 3 min: 6 Total Time in Labor hrs: 8 Total Time in Labor min: 10 VAGINAL DELIVERY Episiotomy: None Laceration Type: Sulcus Other Laceration: bilateral sulus lacerations Laceration Repair: Yes Laceration Repair Note: 2-0 Vicryl and 3-0 Chromic sutures utilized to repair Extensive and deep rachelle ateral sulcus tears. 1% Lidocaine for local Anesthesia utilized since Epidural was not working Initial Vag Sponge Count: 30 Final Vag Sponge Count: 30 Initial Vag Sharps Count: 3 Final Vag Sharps Count: 3 Sponge Count Correct: Yes Sharps Count Correct: Yes BABY A INFORMATION Delivery Date/Time: 08/07/2018 08:04 Method of Delivery: Vaginal Born in Route : No : N/A Forceps: N/A Vacuum Extraction: N/A Shoulder Dystocia : No SHOULDER DYSTOCIA BABY A Infant Delivery Date/Time: 08/07/2018 08:04 PRESENTATION/POSITION BABY A Presentation: Cephalic Cephalic Presentation: Vertex Breech Presentation: N/A PLACENTA INFORMATION BABY A Placenta Delivery Time : 08/07/2018 08:10 Placenta Method of Delivery: Spontaneous Placenta Status: Delivered SCORES BABY A Heart Rate 1 min: >100 bpm Resp Effort 1 min: Good Cry Reflex Irritability 1 min: Cough or Sneeze or Pulls Away Muscle Tone 1 min: Active Motion Color 1 min: Body [place], Extremities Blue Resuscitation Effort 1 min: Tactile Stimulation SCORE 1 MIN: 9 Heart Rate 5 min: >100 bpm Resp Effort 5 min: Good Cry Reflex Irritability 5 min: Cough or Sneeze or Pulls Away Muscle Tone 5 min: Active Motion Color 5 min: Body [place], Extremities Blue SCORE 5 MIN: 9 INFANT INFORMATION BABY A Gestational Age at Delivery: 36.0 Gestational Status: Infant Outcome : Liveborn Condition : Stable Sex: Female IDENTIFICATION/MEDS BABY A ID Band Number: [id number] ID Band Location: Left Leg; Left Arm Sensor Applied: Yes Sensor Number: [id number] Sensor Location : Cord Clamp WEIGHT/LENGTH BABY A Infant Birthweight (gms): 2425 Infant Weight (lb): 5 Weight (oz): 6 Length Inches: 18.00 Infant Length cms: 45.7 CORD INFORMATION BABY A No. Cord Vessels: 3 Nuchal Cord : Around Neck x1, Loose Infant Cord pH Baby Arterial: 7.20 Infant Cord pH Baby Venous: 7.20 Cord Blood Taken: Yes Suction: Mouth; Nose ASSESSMENT BABY A Complications: None Physical Findings at Delivery: Within Normal Limits Infant Respirations: Appears Normal Materials Buyer/ALS Called : No Transferred To: Remains with Mother
[2018-08-07] MEDS: Multiple Vitamins Tab PO SCH (10:32)
[2018-08-07] MEDS ORDERED: Oxytocin 30 UNIT 30 UNITS/500 ML BAG IV SCH (10:45)
[2018-08-07] MEDS ORDERED: Lidocaine 1% PF (5ml) Amp INJ ONE (10:45)
[2018-08-07 14:12] LABS: ALBUMIN 2.7 g/dL (3.5-5.0); ALT/SGPT 17 U/L (9-52); AST/SGOT 23 U/L (14-36); CALCIUM 8.7 mg/dl (8.6-10.4); GFR NON-AFRICAN AMERICAN > 60
[2018-08-07 14:18] LABS: BLOOD UREA NITROGEN < 2 mg/dL (7-17)
[2018-08-07 14:33] LABS: BASO # 0.2 K/uL (0.0-0.2); EOS % 0.1 % (0.0-4.0); HEMOGLOBIN 8.7 g/dL (11.0-16.0); LYMPH # 1.6 K/uL (1.0-4.3); LYMPH % 9.8 % (20.0-40.0); MEAN CELL VOLUME 67.6 fL (81.0-99.0); MEAN CORPUSCULAR HEMOGLOBIN 21.7 pg (27.0-31.0); MEAN CORPUSCULAR HGB CONC 32.1 g/dL (33.0-37.0); MONO # 0.8 K/uL (0.0-0.8); MONO % 4.9 % (0.0-10.0); NEUT # 14.1 K/uL (1.8-7.0); NEUT % 84.2 % (50.0-75.0); PLATELET COUNT 206 K/uL (130-400); RBC 3.99 Mil/uL (3.80-5.20); RED CELL DISTRIBUTION WIDTH 17.3 % (11.5-14.5); WHITE BLOOD COUNT 16.8 K/uL (4.8-10.8)
[2018-08-07 15:00] LABS: BANDS 2 % (0-2); EOSINOPHIL 2 % (0-4); LYMPHOCYTE 8 % (20-40); MONOCYTE 4 % (0-10); NEUTROPHIL 84 % (50-75); TOTAL CELLS COUNTED 100
[2018-08-07 15:01] LABS: ANISOCYTOSIS SLIGHT; HYPOCHROMIC SLIGHT; MICROCYTOSIS SLIGHT; PLATELET ESTIMATE NORMAL (NORMAL); POLYCHROMIC SLIGHT
[2018-08-07 15:05] LABS: TOXIC GRANULATION PRESENT
[2018-08-07 15:47] LABS: RAPID PLASMA REAGIN NONREACTIVE (NONREACTIVE)
[2018-08-07 15:51] LABS: CREATININE, RANDOM URINE 24.1 mg/dL
[2018-08-08] MEDS: Multiple Vitamins Tab PO SCH (10:15)
--- NOTE | 2018-08-08 11:09 | OBPPN ---
Datetime: 08/08/2018 10:42 PP Pain Prov: Abnormal PP Pain Prov comment: Perineal and cramping PP Nausea Prov: Denies PP Breasts Prov: Not Done PP Heart Prov: Normal PP Lungs Prov: Normal PP Abdomen/Uterus Prov: Normal PP Lochia Prov: Normal PP Vulva/Perineum Prov: Normal PP CVA Tenderness Prov: Normal PP Extremities Prov: Normal PP C/S Incision Prov: Not Applicable PP Progress Prov: Normal PP Comments Phys Exam Prov: Fundus firm and nonter 2 FB below Umbilicus PP Impression Prov: Normal progression; Pain PP Plan Prov: Continue present management PP Progress Note Prov: PPD # 1 (succesful ) Large Vaginal repair and pain controlled with Percocet C/O of moderated cramping at the point of precluding . Will order Motrin Q 6 hrs Voiding ok Gives Hx of Constipation and drinks little to no water Advised to increase po water and fiber in diet Encourage to increase po water while in here Advance care Anticipate D/C home in AM IP PP Procedures: None Vital Signs Provider PP: Reviewed; Within Normal Limits
[2018-08-08] MEDS: Oxycodone/Acetaminophen 5/325 mg Tab PO SCH ×2 (12:48→18:23)
[2018-08-09] MEDS: Oxycodone/Acetaminophen 5/325 mg Tab PO SCH (01:05)
[2018-08-09 07:50] VITALS: BP 108/67; PULSE 80; RESP 18; TEMP 97; O2SAT 100
[2018-08-09] MEDS ORDERED: Influenza Vaccine 60 MCG/0.5 ML SYR (3 yr & up) IM ONE (09:00)
[2018-08-09 09:24] LABS: BASO # 0.1 K/uL (0.0-0.2); BASO % 0.6 % (0.0-2.0); EOS # 0.4 K/uL (0.0-0.7); EOS % 3.9 % (0.0-4.0); HEMOGLOBIN 7.9 g/dL (11.0-16.0); LYMPH # 2.8 K/uL (1.0-4.3); LYMPH % 26.4 % (20.0-40.0); MEAN CELL VOLUME 68.5 fL (81.0-99.0); MEAN CORPUSCULAR HEMOGLOBIN 21.9 pg (27.0-31.0); MEAN PLATELET VOLUME 8.4 fL (7.2-11.7); MONO # 0.7 K/uL (0.0-0.8); MONO % 6.3 % (0.0-10.0); NEUT # 6.6 K/uL (1.8-7.0); NEUT % 62.8 % (50.0-75.0); RBC 3.61 Mil/uL (3.80-5.20); RED CELL DISTRIBUTION WIDTH 17.8 % (11.5-14.5); WHITE BLOOD COUNT 10.6 K/uL (4.8-10.8)
--- NOTE | 2018-08-09 12:10 | OBDCSUM ---
Datetime: 08/09/2018 09:07 Discharged to, Provider: Home Follow up at, Provider: [facility] Disch Instr Activity: Normal activity; May be up to bathroom; May be up for meals; May Shower Disch Instr Diet: Regular Discharge Instructions, Provider: Routine instructions given Discharge Diagnosis, Provider: Delivery Discharge Time: 08/09/2018 12:10 Follow up in weeks, Provider: 6 weeks Contraception discussed, Prov: No Disch Activity Restrictions: No sexual activity; Nothing in vagina - [place], tampons, douche Discharge Diagnosis Prov Other: Previous section Status post vaginal after section Anemia - worsened
--- NOTE | 2018-08-09 12:10 | OBPPN ---
Datetime: 08/09/2018 08:58 PP Pain Prov: Within normal limits PP Nausea Prov: Denies PP Flatus Prov: Yes PP BM Prov: Yes PP Breasts Prov: Normal PP Heart Prov: Normal PP Abdomen/Uterus Prov: Normal PP Lochia Prov: Normal PP Vulva/Perineum Prov: Normal PP CVA Tenderness Prov: Normal PP Extremities Prov: Normal PP C/S Incision Prov: Not Applicable PP Progress Prov: Normal PP Comments Phys Exam Prov: Abdomen: Soft. Non distended. Fundus firm, mobile, non tender, 18 weeks. Minimal lochia rubra Extremities: no calf tenderness, or edema All other systems reviewed and are negative PP Impression Prov: Normal progression PP Plan Prov: Discharge PP Progress Note Prov: Patient received in room 450, eating breakfast. Reports abdominal cramps - re lieved by percocet and motrin. Primarily .Ambulating and voiding. Denies nausea, vomitin g, dizziness or lightheadedness. P.E.: as above. WD in NAD. Awake, alert, oriented to time, person and place. [place] and cocopera tive. sleeping Assessment: PPD#2 28 y.o. P1102, S/P . Afebrile, vital signs stable. Anemia on admission noted . Patient is hemodynamically stable and asymptomatic. Clinically stable. Plan: 1) CBC now 2) Anticipate discharge home today Addendum: 1205 hours CBC resulted: WBC 10.6; H/H 7.9/24.7. Patient remains asymptomatic; vital signs reviewed and are stable. - patient counseled on results, to continue vitmains; on iron supplementation and Vit C; and to increase p.o. intake of iron-rich foods. Plan: 1) Discharge home 2) See full discharge instructions IP PP Procedures: None Vital Signs Provider PP: Reviewed
[2018-08-09] MEDS: Multiple Vitamins Tab PO SCH (13:01)
== END 2018-08-09 13:00 | disposition home or self-care (01) | DRG 560 ==
LOC: C.EROB 22:00 → C.4D 22:27 → UNDOADMIN 22:32 → C.4D 22:32 → C.4M 08-07 10:28
PROVIDERS: ADMIT Obstetrics & Gynecology; ATTEND Obstetrics & Gynecology
PROC: 10E0XZZ Delivery of Products of Conception, External Approach (ICD-10-PCS; principal; 2018-08-07)
PROC: 0KQM0ZZ Repair Perineum Muscle, Open Approach (ICD-10-PCS; 2018-08-07)
PROC: 3E033VJ Introduction of Other Hormone into Peripheral Vein, Percutaneous Approach (ICD-10-PCS; 2018-08-07)
DX: O42.013 Preterm premature rupture of membranes, onset of labor within 24 hours of rupture, third trimester (principal); O60.14X0 Preterm labor third trimester with preterm delivery third trimester, not applicable or unspecified; O71.4 Obstetric high vaginal laceration alone; O34.219 Maternal care for unspecified type scar from previous cesarean delivery; O62.2 Other uterine inertia; D64.9 Anemia, unspecified; O99.02 Anemia complicating childbirth; O69.81X0 Labor and delivery complicated by cord around neck, without compression, not applicable or unspecified; Z3A.36 36 weeks gestation of pregnancy; Z37.0 Single live birth